=== PATIENT | female | born 1985 | race African-American/Black ===

== ENCOUNTER 2018-12-13 10:46 | Emergency (ER) | payer OTHER ==
[~2018-12-13] VITALS: Ht 170.2 cm; Wt 76.2 kg
--- NOTE | 2018-12-13 11:01 | NUR ---
PATIENT AMBULATED TO BED 6 AT THIS TIME.
[2018-12-13 11:14] VITALS: BP 137/65
[2018-12-13] MEDS ORDERED: FOLIC ACID 1 MG TAB PO ONE (11:15)
[2018-12-13] MEDS ORDERED: ONDANSETRON 4 MG TAB PO ONE (11:15)
[2018-12-13] MEDS ORDERED: MECLIZINE 25 MG TAB PO ONE (11:15)
[2018-12-13] MEDS ORDERED: FAMOTIDINE 20 MG TAB PO ONE (11:15)
--- NOTE | 2018-12-13 11:15 | NUR ---
PT AMB W/O ASST TO [facility]A DONE
--- NOTE | 2018-12-13 11:24 | NUR ---
THIS 10 WEEKS WOMAN BIB SELF TO THE ED WITH THE CHIEF C/O VOMITING. VOMIT X1. NO BLOOD IN VOMIT. UNDER CARE BUT NOT TAKING ANY MEDS OR VITAMIN. NAUSEATED AT THIS TIME. HAS CLEAR VAGINAL DISCHARGE. NO ITCHING OR VAGINAL BLEEDING P ER PT. DENIES DIARRHEA. DENIES ANY FEVER, SOB OR DIFFICULTY BREATHING. AFEBRILE. PLACED PT ON MONITOR. VSS.
--- NOTE | 2018-12-13 11:39 | NUR ---
US PREG IN PROCESS AT THIS TIME.
[2018-12-13 12:08] LABS: BASOPHILS # (AUTO) 0.1 K/uL (0.00-0.22); BASOPHILS % (AUTO) 0.7 % (0.0-2.0); EOSINOPHILS # (AUTO) 0.1 K/uL (0-0.4); EOSINOPHILS % (AUTO) 0.7 % (0.0-4.0); HEMATOCRIT 42.2 % (36-48); HEMOGLOBIN 14.3 g/dL (12.0-16.0); LYMPHOCYTES # (AUTO) 1.5 K/uL (2.5-16.5); LYMPHOCYTES % (AUTO) 17.3 % (20.5-51.1); MEAN CORPUSCULAR HEMOGLOBIN 31 pg (27-31); MEAN CORPUSCULAR HGB CONC 34 g/dL (33-37); MEAN CORPUSCULAR VOLUME 92.5 fL (80-94); MONOCYTES # (AUTO) 0.5 K/uL (0.8-1.0); MONOCYTES % (AUTO) 5.9 % (1.7-9.3); NEUTROPHILS # (AUTO) 6.7 K/uL (1.8-7.7); NEUTROPHILS % (AUTO) 75.4 % (42.2-75.2); PLATELET COUNT (AUTO) 207 K/uL (140-450); RED BLOOD CELL COUNT(AUTO) 4.56 MIL/uL (4.20-5.40); RED CELL DISTRIBUTION WIDTH 13.4 % (11.6-13.7); WHITE BLOOD COUNT (AUTO) 8.9 K/uL (4.8-10.8)
[2018-12-13 12:25] LABS: APPEARANCE,URINE CLOUDY (CLEAR); BILIRUBIN,URINE NEGATIVE (NEGATIVE); BLOOD, URINE NEGATIVE (NEGATIVE); COLOR,URINE YELLOW (YELLOW); LEUKOCYTE ESTERASE ,URINE 1+ (NEGATIVE); NITRITE, URINE NEGATIVE (NEGATIVE); UGLUCOSE NEGATIVE (NEGATIVE)
[2018-12-13 12:39] LABS: RBC,URINE NONE SEEN /HPF (0-5)
[2018-12-13 13:15] VITALS: BP 108/78
--- NOTE | 2018-12-13 13:15 | NUR ---
Patient discharged with v/s stable. Written and verbal after care instructions given and explained. Patient alert, oriented and verbalized understanding of instructions. Ambulatory with steady gait. All questions addressed prior to discharge. ID band removed. Patient advised to follow up with PMD. Rx of VANTIN,[facility] , CALCIUM-FOLIC, ZOFRAN given. Patient educated on indication of medication including possible reaction and side effects. Opportunity to ask questions provided and answered.
== END 2018-12-13 13:15 | disposition home or self-care (01) ==
LOC: MED 10:46
DX: O21.0 Mild hyperemesis gravidarum (principal); O23.11 Infections of bladder in pregnancy, first trimester; O99.341 Other mental disorders complicating pregnancy, first trimester; F48.9 Nonpsychotic mental disorder, unspecified; Z91.19 Patient's noncompliance with other medical treatment and regimen; Z3A.12 12 weeks gestation of pregnancy
CPT/HCPCS: 36415; 76801; 81001; 81025; 84702; 85025; 86900; 86901; 87086; 99284; J8597; Q0092; Q0162